=== PATIENT | female | born 1940 | race Caucasian/White ===

== ENCOUNTER 2018-03-18 10:23 | Emergency (ER) | payer MEDICARE, BC ==
[2018-03-18] MEDS ORDERED: Sodium Chloride 0.9% 10 ML Syringe FLUSH PRN (10:32)
--- NOTE | 2018-03-18 10:38 | EDM.PDOC ---
ED HPI GENERAL MEDICAL PROBLEM - General Chief Complaint: Neurological Problem Stated Complaint: Seizure Time Seen by Provider: 03/18/18 10:31 Source of Information: Reports: EMS Notes Reviewed, Family, RN, RN Notes Reviewed History Limitations: Reports: No Limitations - History of Present Illness INITIAL COMMENTS - FREE TEXT/NARRATIVE: Patient is brought to the ED at [facility] after she had a witness seizure while on her way to have her pacermaker check. Patient was brought to the ED by EMS. According to the EMS crew, the seizure lasted approximately 2 minutes. Patient did bite her tongue. She does not have any history of seizures. The family states that they were on the way to [place] when the patient had the witnessed seizure. The patient did bite her tongue. Upon arrival to the emergency room the patient was clearly post ictal. No CVA symptoms. No chest pain. No SOB. Patient is confused, but remembers remote events. No prior history of seizures. Onset: Today, Sudden Onset Date: 03/18/18 - Related Data Allergies Allergy/AdvReac Type Severity Reaction Status Date / Time Sulfa (Sulfonamide Allergy Cannot Verified 03/18/18 11:54 Antibiotics) Remember ED ROS GENERAL - Review of Systems Review Of Systems: See Below Constitutional: Reports: Weakness. Denies: Fever, Chills HEENT: Reports: No Symptoms Respiratory: Denies: Shortness of Breath, Cough Cardiovascular: Denies: Chest Pain, Palpitations GI/Abdominal: Denies: Abdominal Pain, Nausea, Vomiting Skin: Reports: No Symptoms Neurological: Reports: Confusion, Seizure. Denies: Headache, Numbness, Paresthesia, Tingling - Physical Exam Exam: See Below Exam Limited By: No Limitations General Appearance: Alert, No Apparent Distress Eye Exam: Bilateral Eye: EOMI, Normal Inspection, PERRL (sluggish) Throat/Mouth: Evidence of Tongue Biting Head Exam: Atraumatic, Normocephalic Neck: Supple Respiratory/Chest: No Respiratory Distress, Lungs Clear, Normal Breath Sounds Cardiovascular: Normal Peripheral Pulses, Regular Rate, Rhythm GI/Abdominal: Normal Bowel Sounds, Soft, Non-Tender Neuro Exam (Abbreviated): Alert, Disoriented, Slow to Respond Extremities: Normal Inspection Skin Exam: Warm, Dry, Intact, Normal Color EKG INTERPRETATION EKG Date: 03/18/18 Time: 10:32 Rhythm: Other Rate (Beats/Min): 60 [place]: Normal P-Wave: Absent QRS: Normal ST-T: Normal QT: Normal TN/PQ Interval: Absent, paced rhythm Comparison: NA - No Prior EKG EKG Interpretation Comments: 1. AV paced Course - Vital Signs Last Recorded V/S: Last Vital Signs Temp 36.1 C 03/18/18 10:23 Pulse 60 03/18/18 10:23 Resp 14 03/18/18 10:23 BP 179/67 H 03/18/18 10:23 Pulse Ox 86 L 03/18/18 10:23 - Orders/Labs/Meds Orders: Active Orders 24 hr Category Date Time Status EKG 12 Lead [EKG Documentation Completion] [RC] STAT Care 03/18/18 10:32 Active Head wo Cont [CT] Stat Exams 03/18/18 10:31 Taken PROLACTIN [REF] Stat Lab 03/18/18 10:48 Received UA W/MICROSCOPIC [URIN] Stat Lab 03/18/18 11:39 Ordered Sodium Chloride 0.9% [Saline Flush] Med 03/18/18 10:32 Active 10 ml FLUSH ASDIRECTED PRN Peripheral IV Insertion Adult [OM.PC] Routine Oth 03/18/18 10:32 Ordered Medication Orders Sodium Chloride (Saline Flush) 10 ml FLUSH ASDIRECTED PRN PRN Reason: Keep Vein Open Labs: Laboratory Tests 03/18/18 03/18/18 03/18/18 Range/Units 10:48 10:48 11:39 WBC 7.6 (4.0-10.0) x10^3/uL RBC 4.76 (4.00-5.50) x10^6/uL Hgb 13.3 (12.0-16.0) g/dL Hct 40.6 (33.0-47.0) % MCV 85.3 (78.0-93.0) fL MCH 27.9 (26.0-32.0) pg MCHC 32.8 (32.0-36.0) g/dL RDW Coeff of Ken 23.7 H (10.0-15.0) % Plt Count 166 (130-400) x10^3/uL Neut % (Auto) 47.4 L (50.0-80.0) % Lymph % (Auto) 40.3 (25.0-50.0) % [place] % (Auto) 9.5 (2.0-11.0) % Eos % (Auto) 2.5 (0.0-4.0) % Baso % (Auto) 0.3 (0.2-1.2) % Sodium 141 (136-145) mmol/L Potassium 3.4 L (3.5-5.1) mmol/L Chloride 102 (98-107) mmol/L Carbon Dioxide 29 (21-32) mmol/L Anion Gap 13.4 (10-20) mmol/L BUN 33 H (7-18) mg/dL Creatinine 1.3 H (0.55-1.02) mg/dL Est Cr Clr Drug Dosing TNP Estimated GFR (MDRD) 40 Glucose 85 (74-106) mg/dL Calcium 9.0 (8.5-10.1) mg/dL Corrected Calcium 9.48 (8.5-10.1) mg/dL Phosphorus 3.2 (2.6-4.7) mg/dL Magnesium 2.3 (1.8-2.4) mg/dL Total Bilirubin 0.5 (0.2-1.0) mg/dL AST 28 (15-37) U/L ALT 22 (14-59) U/L Alkaline Phosphatase 113 (46-116) U/L Lactate Dehydrogenase 360 H (81-234) U/L Creatine Kinase 89 (26-192) U/L Troponin I 0.019 (<=0.056) ng/mL Total Protein 7.3 (6.4-8.2) g/dL Albumin 3.4 (3.4-5.0) g/dL Globulin 3.9 Albumin/Globulin Ratio 0.87 Urine Color Light yellow (YELLOW) Urine Appearance Slightly cloudy H (CLEAR) Urine pH 7.0 (5.0-8.0) Ur Specific Donald 1.010 Urine Protein Negative (NEGATIVE) mg/dL Urine Glucose (UA) Negative (NEGATIVE) mg/dL Urine Ketones Negative (NEGATIVE) mg/dL Urine Occult Blood Negative (NEGATIVE) Urine Nitrite Negative (NEGATIVE) Urine Bilirubin Negative (NEGATIVE) Urine Urobilinogen 0.2 (0.2) EU/dL Ur Leukocyte Esterase Small H (NEGATIVE) Meds: Medications Generic Name Dose Route Start Last Admin Trade Name Freq PRN Reason Stop Dose Admin Sodium Chloride 10 ml 03/18/18 10:32 Saline Flush FLUSH ASDIRECTED PRN Keep Vein Open - Radiology Interpretation Free Text/Narrative:: CT Head w/o: no plain CT evidence of acute intracranial process See scanned report in EMR CT Results Date: 03/18/18 CT Results Time: 10:53 Departure - Departure Time of Disposition: 12:04 Disposition: DC/Tfer to Acute Hospital 02 Condition: Good Clinical Impression: New onset seizure, Post-ictal confusion - Discharge Information Forms: Interfacility Transfer [facility] ED Communication - ED Communication Date/Time Date: 03/18/18 Time Called: 12:00 - Discussed Case With (1) Discussed Case With (1): Admitting Provider (LAURA Fink) - Conversation Summary Admitting Provider Agreed to Patient's Admission: Yes Patient's POA/Guardian Aware of Amendments to Care Plan: Yes - Problem List Review Problem List Initiated/Reviewed/Updated: Yes - My Orders Last 24 Hours: My Active Orders 03/18/18 10:31 Head wo Cont [CT] Stat 03/18/18 10:32 EKG 12 Lead [EKG Documentation Completion] [RC] STAT Sodium Chloride 0.9% [Saline Flush] 10 ml FLUSH ASDIRECTED PRN Peripheral IV Insertion Adult [OM.PC] Routine 03/18/18 10:48 PROLACTIN [REF] Stat 03/18/18 11:39 UA W/MICROSCOPIC [URIN] Stat - Assessment/Plan Last 24 Hours: My Active Orders 03/18/18 10:31 Head wo Cont [CT] Stat 03/18/18 10:32 EKG 12 Lead [EKG Documentation Completion] [RC] STAT Sodium Chloride 0.9% [Saline Flush] 10 ml FLUSH ASDIRECTED PRN Peripheral IV Insertion Adult [OM.PC] Routine 03/18/18 10:48 PROLACTIN [REF] Stat 03/18/18 11:39 UA W/MICROSCOPIC [URIN] Stat Assessment:: New onset seizures Plan: Case discussed with LAURA Fink. Patient will be transferred to [facility] for further evaluation and treatment per Neurology. Family agrees with POC and wishes to proceed. Patient will be sent via ALS ground.
[2018-03-18 11:18] LABS: CHLORIDE,CL 102 mmol/L (98-107); SODIUM,NA 141 mmol/L (136-145)
== END 2018-03-18 12:20 | disposition short-term general hospital (02) ==
LOC: VM.ED 10:23
DX: R56.9 Unspecified convulsions (principal); R41.0 Disorientation, unspecified; Z88.2 Allergy status to sulfonamides
CPT/HCPCS: 36415; 70450; 80053; 81001; 82550; 83615; 83735; 84100; 84146; 84484; 85025; 93005; 93010; 99284-GF; 99285